=== PATIENT | male | born 1950 | race Two or more races ===

== ENCOUNTER 2019-11-14 12:00 | Inpatient (IN) | payer OTHER ==
[2019-11-14] VITALS (7 sets, daily range): BP systolic 121–136; BP diastolic 66–82
[~2019-11-14] VITALS: Ht 177.8 cm; Wt 88.5 kg
--- NOTE | 2019-11-14 12:50 | NUR ---
ED Nurse Note: ERMD on bedside.
--- NOTE | 2019-11-14 13:00 | NUR ---
ED Nurse Note: Blood sample sent down to lab
[2019-11-14 13:07] LABS: HEMOGLOBIN 6.7 G/DL (14.2-18.0); MEAN CORPUSCULAR VOLUME 92 FL (80-99); PLATELET COUNT 290 K/UL (150-450); RED BLOOD COUNT 2.29 M/UL (4.70-6.10); RED CELL DISTRIBUTION WIDTH 20.4 % (11.6-14.8); WHITE BLOOD COUNT 5.2 K/UL (4.8-10.8)
[2019-11-14 13:12] LABS: INR 1.1 (0.9-1.1)
[2019-11-14 13:17] LABS: ANION GAP 11 mmol/L (5-15); BLOOD UREA NITROGEN 19 mg/dL (7-18); CALCIUM 8.5 MG/DL (8.5-10.1); CARBON DIOXIDE 23 MMOL/L (21-32); CHLORIDE 106 MMOL/L (98-107); POTASSIUM 4.1 MMOL/L (3.5-5.1); SODIUM 140 MMOL/L (136-145)
[2019-11-14 13:21] LABS: ALANINE AMINOTRANSFERASE 22 U/L (12-78); ALBUMIN/GLOBULIN RATIO 0.7 (1.0-2.7); ALKALINE PHOSPHATASE 278 U/L (46-116); ASPARTATE AMINO TRANSFERASE 27 U/L (15-37); BILIRUBIN,TOTAL 0.4 MG/DL (0.2-1.0)
--- NOTE | 2019-11-14 13:49 | Emergency Room Report ---
History of Present Illness General Chief Complaint: General Complaint Source: Patient Present Illness HPI Patient is a 69-year-old male who presents to the ER stating that he was told that he was anemic. Patient states that he has been feeling generally weak recently and went for a checkup and was found to have low hemoglobin. Patient denies any dizziness, chest pain or shortness of breath. He denies any dark or bloody stools. He denies any signs of active bleeding. He does complain of a unwanted 20 pound weight loss. He denies any abdominal pain, nausea or vomiting. He denies any recent travel. He was referred to the emergency room by . Allergies: Coded Allergies: No Known Allergies (Unverified , 11/14/19) Patient History Social History: Denies: smoking, alcohol use, drug use Reviewed Nursing Documentation: PMH: Agreed; PSxH: Agreed Nursing Documentation-PMH Past Medical History: No History, Except For Hx Diabetes: Yes - Pre DM Review of Systems All Other Systems: negative except mentioned in HPI Physical Exam Vital Signs Date Time Temp Pulse Resp B/P (MAP) Pulse Ox O2 Delivery O2 Flow Rate FiO2 11/14/19 12:20 97.9 71 16 133/79 (97) 96 Room Air Sp02 EP Interpretation: reviewed, normal General Appearance: no apparent distress, alert, GCS 15, non-toxic Head: normocephalic, atraumatic Eyes: bilateral eye normal inspection, bilateral eye PERRL ENT: hearing grossly normal, normal pharynx, no angioedema, normal voice Neck: full range of motion, supple/symm/no masses Respiratory: chest non-tender, lungs clear, normal breath sounds, speaking full sentences Cardiovascular #1: regular rate, rhythm, no edema Cardiovascular #2: 2+ carotid (R), 2+ carotid (L), 2+ radial (R), 2+ radial (L) , 2+ dorsalis pedis (R), 2+ dorsalis pedis (L) Gastrointestinal: normal bowel sounds, non tender, soft, non-distended, no guarding, no rebound Rectal: deferred Genitourinary: normal inspection, no CVA tenderness Musculoskeletal: back normal, normal range of motion, calf tenderness, gait/ station normal, non-tender Neurologic: alert, motor strength/tone normal, oriented x3, sensory intact, responsive, speech normal Psychiatric: judgement/insight normal, memory normal, mood/affect normal, no suicidal/homicidal ideation Reflexes: 3+ bicep (R), 3+ bicep (L), 3+ tricep (R), 3+ tricep (L), 3+ knee (R) , 3+ knee (L) Skin: pallor Lymphatic: no adenopathy Medical Decision Making Diagnostic Impression: Primary Impression: Symptomatic anemia ER Course Patient found to be anemic. Hemoglobin less than 7. No obvious signs of bleeding. I have ordered for a blood transfusion. Total critical care time: Approximately 35 minutes. Due to a high probability of clinically significant, life threatening deterioration, the patient required my highest level of preparedness to intervene emergently and I personally spent this critical care time directly and personally managing the patient. This critical care time included obtaining a history; examining the patient; pulse oximetry; ordering and review of studies; arranging urgent treatment with development of a management plan; evaluation of patient's response to treatment ; frequent reassessment; and, discussions with other providers.This critical care time was performed to assess and manage the high probability of imminent, life-threatening deterioration that could result in multi-organ failure. It was exclusive of separately billable procedures and treating other patients and teaching time. Please see MDM section and the rest of the note for further information on patient assessment and treatment. I have contacted the patient's physician who sent him in , oncology. Awaiting callback. I discussed case for admission with DR. Parry due to insurance. He will admit the patient. Last Vital Signs Date Time Temp Pulse Resp B/P (MAP) Pulse Ox O2 Delivery O2 Flow Rate FiO2 11/14/19 12:50 71 16 Room Air 11/14/19 12:50 97.9 133/79 96 Disposition: PLACE IN OBSERVATION Condition: Critical Physician Consult: Dr. Parry for Admission Referrals: NON PHYSICIAN (PCP) Additional Instructions: Patient admitted to medical floor in guarded condition. Belkis Lacey M.D. Nov 14, 2019 13:49
--- NOTE | 2019-11-14 14:04 | NUR ---
ED Nurse Note: Picked-up PRBC at blood bank. Pt is AOx4, consent signed. VSS, on RA. NAD.
--- NOTE | 2019-11-14 14:25 | NUR ---
ED Nurse Note: Pt on bed, VSS, on RA. NAD. PRBC and 250NS prepared and primed with ASTRID Barrientos. Rechecked done. pre-Blood transfusion VSS. Pt denied any feeling of pain prior to Blood Transfusion.
--- NOTE | 2019-11-14 14:40 | NUR ---
ED Nurse Note: BT rate changed to 200ml/hr. Pt's VSS, on RA. NAD. Pt denied pain per assessment. Latest temp: 99.0F. BT tolerated well. Will continue to monitor.
--- NOTE | 2019-11-14 15:35 | NUR ---
ED Nurse Note: Report given to ASTRID Thomas. Requested Pt to be up on 9764.
--- NOTE | 2019-11-14 16:00 | NUR ---
ED Nurse Note: Blood Transfusion done; flushed pt tolerated. VSS, on RA. NAD.
--- NOTE | 2019-11-14 16:10 | NUR ---
TRANSFER TO FLOOR: Patient transferred to [facility] as ordered, per Dr. Parry. report given to William RESENDIZ. Belongings and medications given to receiving nurse. Family & S/O informed of transfer.
--- NOTE | 2019-11-14 16:26 | NUR ---
NURSE NOTES: I received report from William, Charge nurse; patient arrived the unite by mark from ER; patient awake, alert x4; on room air, no sing of distress and shortness of breath; no sing of chest pain; Iv Left AC 20G flushes well; belonging list signed by ER nurse and primary nurse; side rails up x2, bed at lowest position, breaks engaged, call light within reach; will keep monitoring.
--- NOTE | 2019-11-14 16:30 | NUR ---
NURSE NOTES: patient arraived the unit after the 1 unit PRBC blood transfusion done at the ER; Patient oriented to the room; patient steady gait, ambulates with out assist; patient asking for food; patient instructed that MD will be notified to give a diet order; bed at lowest position, side rails rails up x2, breaks engaged; will keep monitoring.
--- NOTE | 2019-11-14 19:37 | NUR ---
NURSE NOTES: Pt received alert and oriented X 4, able to make needs known, call light within reach, pt still needs to received 2 units blood, will contact lab 1 hour after receiving blood to have CBC, pt requesting advil for pain, will contact MD.
--- NOTE | 2019-11-14 19:41 | NUR ---
HAND-OFF: Report given to ASTRID Parker. Endorsed to nurse that after the 2 unites blood transfusion to wait for one hour and call lab to do the blood draw to check CBC.
[2019-11-14] MEDS ORDERED: Tamsulosin 0.4mg cap ORAL SCH (21:00)
[2019-11-15] VITALS: BP 144/95
[2019-11-15 04:00] VITALS: BP 144/83
[2019-11-15 05:42] LABS: BASOPHILS % (AUTO) 1.3 % (0.0-2.0); EOSINOPHILS % (AUTO) 1.4 % (0.0-3.0); HEMATOCRIT 28.4 % (42.0-52.0); HEMOGLOBIN 9.3 G/DL (14.2-18.0); LYMPHOCYTES % (AUTO) 22.9 % (20.0-45.0); MEAN CORPUSCULAR VOLUME 90 FL (80-99); MONOCYTES % (AUTO) 5.6 % (1.0-10.0); NEUTROPHILS % (AUTO) 68.8 % (45.0-75.0); PLATELET COUNT 263 K/UL (150-450); RED BLOOD COUNT 3.16 M/UL (4.70-6.10); RED CELL DISTRIBUTION WIDTH 18.7 % (11.6-14.8); WHITE BLOOD COUNT 5.2 K/UL (4.8-10.8)
--- NOTE | 2019-11-15 07:40 | NUR ---
HAND-OFF: Report given to ASTRID Hernandez.
[2019-11-15 08:00] VITALS: BP 151/84
--- NOTE | 2019-11-15 08:00 | NUR ---
NURSE NOTES: Patient awake and alert and oriented,patient state feeling better since receiving blood transfusions.Eating breakfast.Call light within reach.
[2019-11-15 12:00] VITALS: BP 158/88
[2019-11-15] MEDS ORDERED: FLOMAX0.4 MG ORAL ×2 (12:19→12:20)
--- NOTE | 2019-11-15 13:00 | NUR ---
NURSE NOTES: Discharge with discharge instructions given.IV removed and ID hospital name band removed.patient has his personal belongings,patient spouse here and they will take Uber home.Patient accompany downstairs.
--- NOTE | 2019-11-15 20:15 | History and Physical Report ---
DATE OF ADMISSION: 11/14/2019 HISTORY OF PRESENT ILLNESS: This is a 69-year-old male, who came to the hospital with feeling weak. He was seen by his oncologist/audiometric technician, Dr. Man, who advised evaluation because of a low hemoglobin of 6. The patient was seen and evaluated in the emergency room. He was noted to have a low hemoglobin of 6.7 with normal white count and normal platelet count. He was advised admission for transfusion. His remainder of laboratory workup was unremarkable except for an alkaline phosphatase of 278 and albumin of 3. INR is 1.1. PAST MEDICAL HISTORY: The patient denies any previous medical history except for history of borderline diabetes mellitus. SURGERIES: None. ALLERGIES: None. HOME MEDICATIONS: None. REVIEW OF SYSTEMS: Denies any headaches, hematemesis, melena, hematochezia, night sweats, or weight loss. PHYSICAL EXAMINATION: GENERAL: Reveals a 69-year-old male. VITAL SIGNS: Blood pressure 130/70, heart rate 76, respirations 18. He is afebrile. O2 saturation on room air. HEENT: Unremarkable. LUNGS: Clear breath sounds bilaterally with normal heart sounds. ABDOMEN: Soft. EXTREMITIES: There is no edema. NEUROLOGIC: Nonfocal. IMPRESSION: 1. Anemia, etiology uncertain. 2. Prediabetes. DISCUSSION: We will place in observation overnight and transfuse to level greater than 8. He is already established with Dr. Man who will initiate an outpatient workup for sources of blood loss. He will benefit from upper and lower endoscopy. We discussed with the patient in great detail. This will be arranged as an outpatient. He has been transfused overnight. His hemoglobin now is 9.3. He is feeling well. I will discharge him. Fletcher Parry M.D. DR: SHERI JOB#: [id number] CC:
--- NOTE | 2019-11-24 11:34 | Discharge Summary ---
Discharge Summary Discharge Summary _ DATE OF ADMISSION: 11/14/2019 DATE OF DISCHARGE: 11/15/2019 DISCHARGED BY: Dr. Parry REASON FOR ADMISSION: 69 years old male with past medical history of borderline diabetes mellitus , presented to the hospital complaining of feeling weak. He was found to have a low hemoglobin 6.7. No leukocytosis, no thrombocytopenia. Patient was advised on admission for blood transfusion HOSPITAL COURSE: Patient was admitted overnight for blood transfusion. Patient received transfusion of 3 units of packed red blood cells. Prior to discharge the next day hemoglobin 9.3, hematocrit 28.7. Patient was established a contact with a letterer for outpatient work-up for sources of blood loss. Patient was also recommended to have upper and lower endoscopy. Patient clinically stabilized and was ready for discharge. Due to rapid and unexpected improvement in patient condition , patient was discharged in 1 day. FINAL DIAGNOSES: Anemia etiology uncertain Prediabetes DISCHARGE MEDICATIONS: See Medication Reconciliation list. DISCHARGE INSTRUCTIONS: Patient was discharged home. Outpatient follow-up with a letterer as recommended. I have been assigned to dictate discharge summary for this account. I was not involved in the patient's management. Anali Pritchett NP Nov 24, 2019 11:34
== END 2019-11-15 13:00 | disposition home or self-care (01) | DRG 812 ==
LOC: EMR 13:10 → 4E 13:44 → EDBEDREQ 14:28 → CMPBEDREQ 15:17 → 4E 16:43
PROC: 30233N1 Transfusion of Nonautologous Red Blood Cells into Peripheral Vein, Percutaneous Approach (ICD-10-PCS; principal; 2019-11-14)
DX: D64.9 Anemia, unspecified (principal); R73.03 Prediabetes
CPT/HCPCS: 36415; 80053; 83735; 85007; 85025; 85610; 85730; 86850; 86900; 86901; 86920; 99285